=== PATIENT | female | born 1995 | race Caucasian/White ===

== ENCOUNTER 2016-11-15 21:48 | Emergency (ER) | payer OTHER ==
[2016-11-15 22:17] VITALS: RESP 16
[2016-11-15 22:27] VITALS: BP 135/93; PULSE 90; TEMP 98.8
--- NOTE | 2016-11-15 22:48 | ED ---
Lower Extremity Injury HPI - General Chief Complaint: Extremity Injury, Lower Stated Complaint: R foot pain Time Seen by Provider: 11/15/16 22:30 Source: patient, RN notes reviewed Mode of arrival: ambulatory Limitations: no limitations - History of Present Illness Initial Comments: 21-year-old female presents emergency Department chief complaint right foot injury. Patient states that she has pain just proximal over fourth and fifth digit. Patient states she does not know exactly which she did but states that it is very painful to walk on. Patient denies any previous injuries. States is swollen is no bruising or redness. Patient has no numbness or tingling. No back problems. - Related Data Previous Rx's Medication Instructions Recorded Ibuprofen [Motrin] 600 mg PO Q8HR PRN #30 tab 11/15/16 Allergies Allergy/AdvReac Type Severity Reaction Status Date / Time No Known Allergies Allergy Verified 11/15/16 22:17 Review of Systems ROS Statement: Those systems with pertinent positive or pertinent negative responses have been documented in the HPI. ROS Other: All systems not noted in ROS Statement are negative. Past Medical History Past Medical History: No Reported History History of Any Multi-Drug Resistant Organisms: None Reported Past Surgical History: No Surgical Hx Reported Past Psychological History: No Psychological Hx Reported Smoking Status: Never smoker Past Alcohol Use History: Occasional Past Drug Use History: Marijuana General Exam Limitations: no limitations General appearance: alert, in no apparent distress Respiratory exam: Present: normal lung sounds bilaterally. Absent: respiratory distress, wheezes, rales, rhonchi, stridor Cardiovascular Exam: Present: regular rate, normal rhythm, normal heart sounds. Absent: systolic murmur, diastolic murmur, rubs, gallop, clicks Extremities exam: Present: other (Right foot there is moderate tenderness just proximal of the fourth and fifth digit there is pain with fourth and slightly of the fifth digit there is mild swelling no ecchymosis Refill less than 2 seconds) Back exam: Present: full ROM. Absent: tenderness Neurological exam: Present: reflexes normal. Absent: motor sensory deficit Course Vital Signs 11/15/16 22:13 Temperature 98.8 F Pulse Rate 90 Respiratory 16 Rate Blood Pressure 135/93 O2 Sat by Pulse 99 Oximetry Medical Decision Making - Medical Decision Making 21-year-old female presented emergency department for right foot injury. There is no acute fractures. This most likely is of right foot sprain. Patient is advised ice and elevate and rest. Return parameters were discussed. Disposition Clinical Impression: Right foot sprain Disposition: HOME SELF-CARE Condition: Stable Instructions: Foot Sprain (ED) Additional Instructions: Please return to the Emergency Department if symptoms worsen or any other concerns. Prescriptions: Ibuprofen [Motrin] 600 mg PO Q8HR PRN #30 tab PRN Reason: Pain Referrals: None,Stated [Primary Care Provider] - 1-2 days Time of Disposition: 22:47
--- NOTE | 2016-11-15 23:08 | XR ---
EXAM: XR Right Foot Complete, 3 or More Views CLINICAL HISTORY: Reason: Pain TECHNIQUE: Frontal, lateral and oblique views of the right foot. COMPARISON: No relevant prior studies available. FINDINGS: Bones/joints: Unremarkable. No acute fracture. No dislocation. Soft tissues: Unremarkable. No radiopaque foreign body. IMPRESSION: Unremarkable right foot x-rays.
== END 2016-11-15 22:53 | disposition home or self-care (01) ==
LOC: EC 21:48
DX: S93.601A Unspecified sprain of right foot, initial encounter (principal); X58.XXXA Exposure to other specified factors, initial encounter
CPT/HCPCS: 99283

== ENCOUNTER 2017-08-03 16:58 | Inpatient (IN) | payer OTHER ==
[2017-08-03] MEDS ORDERED: CARBOPROST TROMETHAMINE 250 MCG/ML 1 ML AMP IM PRN (19:10)
[2017-08-03] MEDS ORDERED: OXYTOCIN 10 UNIT/ML 1 ML VIAL IM PRN (19:10)
[2017-08-03] MEDS ORDERED: LIDOCAINE 1% (PF) 10 MG/ML (30 ML SDV) SQ PRN (19:10)
[2017-08-03] MEDS ORDERED: AMPICILLIN 2,000 MG in SODIUM CHLORIDE 0.9% 100 ML IVPB STA (19:10)
[2017-08-03] MEDS ORDERED: METHYLERGONOVINE 0.2 MG/ML 1 ML AMP IM PRN (19:10)
[2017-08-03] MEDS ORDERED: TERBUTALINE 1 MG/ML VIAL SQ PRN (19:10)
[2017-08-03] MEDS: LACTATED RINGERS 1,000 ML IV SCH (19:53)
[2017-08-03 20:05] LABS: Basophils % (A) 0 %; Eosinophils # (A) 0.1 k/uL (0-0.7); Eosinophils % (A) 1 %; HCT 30.9 % (34.0-46.0); HGB 9.2 gm/dL (11.4-16.0); Hypochromasia Marked; Lymphocytes # (A) 1.5 k/uL (1.0-4.8); Lymphocytes % (A) 10 %; MCH 22.4 pg (25.0-35.0); MCHC 29.8 g/dL (31.0-37.0); MCV 75.1 fL (80.0-100.0); Microcytosis Slight; Monocytes # (A) 0.5 k/uL (0-1.0); Monocytes % (A) 4 %; Neutrophils # (A) 11.7 k/uL (1.3-7.7); Neutrophils % (A) 84 %; Platelet Count 238 k/uL (150-450); RBC 4.11 m/uL (3.80-5.40); RDW 15.3 % (11.5-15.5)
[2017-08-03 20:17] VITALS: BMI 40.3
--- NOTE | 2017-08-03 22:42 | P.HPOB ---
History of Present Illness H&P Date: 08/03/17 Chief Complaint: Intrauterine at 36 weeks: Active labor Regina is a 22-year-old at 36 weeks gestation who arrives complaining contractions every 2 minutes. The contractions have been going on for a couple of hours prior to arrival. She is seeing another physician at [facility]. She did not call or notify the physician but came to the closest hospital. She was dilated to 3-4 cm on initial presentation but after on hours weight she continued to contract and was dilated to 4 cm. She is admitted for labor. A decision was made that due to distance from the other hospital and active labor status in a multiparaous patient would not be safe to discharge her or try and attempt to transfer. She denies difficulties or problems with this and reports that she had stable and regular care. Past medical history is generally unremarkable. Past surgical history none. Family history none. Social history none. ALLERGIES none. On physical exam vital signs are stable and she is afebrile. Heart regular, lungs clear, extremities are without pain. Osteopathic exam is unremarkable. I did do a digital exam she was dilated to 7 cm and 80% effaced -3 station. Artificial rupture membranes was performed at this point clear fluid is noted. heart tones in the 140s and reactive. Assessment intrauterine at 36 weeks. Plan expect spontaneous vaginal delivery. Past Medical History Past Medical History: No Reported History History of Any Multi-Drug Resistant Organisms: None Reported Past Surgical History: No Surgical Hx Reported Past Anesthesia/Blood Transfusion Reactions: No Reported Reaction Past Psychological History: No Psychological Hx Reported Smoking Status: Never smoker Past Alcohol Use History: Occasional Past Drug Use History: Marijuana - Past Family History Father Family Medical History: No Reported History Medications and Allergies Home Medications Medication Instructions Recorded Confirmed Type Sertraline [Zoloft] 50 mg PO DAILY 08/03/17 08/03/17 History Allergies Allergy/AdvReac Type Severity Reaction Status Date / Time No Known Allergies Allergy Verified 08/03/17 17:11 Exam Osteopathic Statement: *. No significant issues noted on an osteopathic structural exam other than those noted in the History and Physical/Consult. - Vital Signs Vital signs: Vital Signs Temp Pulse Resp BP Pulse Ox 08/03/17 19:09 97.4 F L 82 16 128/70 98 08/03/17 17:14 97.4 F L 82 20 128/70 98 Intake and Output 08/03/17 08/03/17 08/03/17 06:59 14:59 22:59 Other: Weight 127.459 kg Patient Weight 08/04/17 06:59 Weight 127.459 kg Results Result Diagrams: 08/03/17 19:50 Abnormal Lab Results - Last 24 Hours (Table) 08/03/17 Range/Units 19:50 WBC 14.0 H (3.8-10.6) k/uL Hgb 9.2 L (11.4-16.0) gm/dL Hct 30.9 L (34.0-46.0) % MCV 75.1 L (80.0-100.0) fL MCH 22.4 L (25.0-35.0) pg MCHC 29.8 L (31.0-37.0) g/dL Neutrophils # 11.7 H (1.3-7.7) k/uL
[2017-08-03] MEDS ORDERED: MEASLES-MUMPS-RUBELLA VACC/PF 12,500 UNIT/0.5 ML VIAL SQ ONE (23:34)
[2017-08-03] MEDS ORDERED: LANOLIN CREAM 5 GM TUBE TOPICAL PRN (23:34)
[2017-08-03] MEDS ORDERED: HYDROCORTISONE 2.5% RECTAL CREAM 30 GM TUBE RECTAL PRN (23:34)
[2017-08-03] MEDS ORDERED: BENZOCAINE/MENTHOL SPRAY 1 GM/SPRAY AEROSOL TOPICAL PRN (23:34)
[2017-08-03] MEDS ORDERED: diphenhydrAMINE 50 MG/ML 1 ML VIAL IVP PRN ×2 (23:34)
[2017-08-03] MEDS ORDERED: WITCH HAZEL 1 EACH MED..PAD TOPICAL PRN (23:34)
[2017-08-03] MEDS ORDERED: diphenhydrAMINE 50 MG CAP PO PRN (23:34)
[2017-08-03] MEDS ORDERED: diphenhydrAMINE 25 MG CAP PO PRN (23:34)
[2017-08-03] MEDS ORDERED: ZOLPIDEM 5 MG TAB PO PRN (23:34)
[2017-08-03] MEDS ORDERED: ACETAMINOPHEN TAB 325 MG TAB PO PRN (23:34)
[2017-08-03] MEDS ORDERED: SIMETHICONE 80 MG CHEWABLE PO PRN (23:34)
--- NOTE | 2017-08-03 23:36 | P.PROBDLV ---
Vaginal Delivery Note - . Vaginal Delivery Note: Patient progressed complete and pushing with spontaneous vaginal delivery of a viable male over an intact perineum. Falling deliver the head a nuchal cord 1 was noted but baby was delivered through the nuchal cord. Once baby was fully delivered mouth nares were bulb suctioned and baby was placed on mother's abdomen where the umbilical cord was allowed to pulsate for approximately 30 seconds prior to clamping, cutting. Nursery personnel was present to assume care. Placenta was then delivered intact and Pitocin was added to the IV. scores were 9 and 9 at one and 5 minutes respectively. The weight is pending but both mother and baby appear stable.
[2017-08-04] MEDS: IBUPROFEN 600 MG TAB PO PRN ×3 (00:28→20:12)
[2017-08-04] MEDS: SENNOSIDES-DOCUSATE SODIUM 1 EACH TAB PO SCH ×2 (08:00→21:37)
--- NOTE | 2017-08-04 09:34 | P.PNOBGVD ---
Subjective - Subjective Principal diagnosis: day 1 Interval history: Overall negative doing very well day 1. She is involuting, voiding, and she is tolerating her diet. She voices no complaints. Patient reports: Reports appetite normal, Reports voiding normally, Reports pain well controlled, Reports ambulating normally : in NICU Objective - Latest Vital Signs Latest vital signs: Vital Signs Temp Pulse Resp BP Pulse Ox 08/04/17 04:00 97.1 F L 78 16 139/70 08/04/17 01:32 75 16 132/74 08/04/17 01:02 73 16 132/72 08/04/17 00:32 86 16 122/74 08/04/17 00:17 81 16 123/65 08/04/17 00:02 75 16 126/72 08/03/17 23:47 85 16 116/57 08/03/17 23:32 97.1 F L 81 16 125/66 08/03/17 19:09 97.4 F L 82 16 128/70 98 08/03/17 17:14 97.4 F L 82 20 128/70 98 Intake and Output 08/03/17 08/04/17 08/04/17 22:59 06:59 14:59 Other: # Voids 1 1 Weight 127.459 kg - Exam Lungs: bilateral: normal Chest: Normal S1, Normal S2 Extremities: Present: normal Abdomen: Present: normal appearance, soft Uterus: Present: normal, firm - Labs Labs: Abnormal Lab Results - Last 24 Hours (Table) 08/03/17 Range/Units 19:50 WBC 14.0 H (3.8-10.6) k/uL Hgb 9.2 L (11.4-16.0) gm/dL Hct 30.9 L (34.0-46.0) % MCV 75.1 L (80.0-100.0) fL MCH 22.4 L (25.0-35.0) pg MCHC 29.8 L (31.0-37.0) g/dL Neutrophils # 11.7 H (1.3-7.7) k/uL
[2017-08-04 21:33] LABS: Basophils % (A) 0 %; Eosinophils # (A) 0.2 k/uL (0-0.7); Eosinophils % (A) 2 %; HCT 29.3 % (34.0-46.0); HGB 8.8 gm/dL (11.4-16.0); Hypochromasia Marked; Lymphocytes # (A) 1.9 k/uL (1.0-4.8); Lymphocytes % (A) 16 %; MCH 22.6 pg (25.0-35.0); MCV 75.3 fL (80.0-100.0); Mean Platelet Volume 7.7; Microcytosis Slight; Monocytes # (A) 0.5 k/uL (0-1.0); Monocytes % (A) 4 %; Neutrophils % (A) 76 %; Platelet Count 223 k/uL (150-450); RBC 3.89 m/uL (3.80-5.40); RDW 14.8 % (11.5-15.5); WBC 11.8 k/uL (3.8-10.6)
[2017-08-04] MEDS: AMPICILLIN 1,000 MG in SODIUM CHLORIDE 0.9% 50 ML IVPB SCH ×2 (21:35→21:36)
[2017-08-04] MEDS: LACTATED RINGERS 1,000 ML IV SCH (21:36)
[2017-08-04 21:44] LABS: AST 19 U/L (14-36); Blood Urea Nitrogen 10 mg/dL (7-17); Uric Acid 3.7 mg/dL (3.7-7.4)
[2017-08-04 21:45] LABS: ALT 16 U/L (9-52); LDH 564 U/L (313-618); Magnesium 1.6 mg/dL (1.6-2.3)
[2017-08-04 21:52] LABS: INR 0.9 (<1.2); Prothrombin Time 9.3 sec (9.0-12.0)
[2017-08-04 22:02] LABS: Appearance,Urine Clear (Clear); Bilirubin,Urine Negative (Negative); Blood,Urine Moderate (Negative); Color,Urine Yellow; Glucose,Urine (UA) Negative (Negative); Ketones,Urine Negative (Negative); Leukocyte Esterase,Urine Moderate (Negative); Mucus,Urine Rare /hpf; Nitrite,Urine Negative (Negative); Protein,Urine Trace (Negative); RBC,Urine >182 /hpf (0-5); Specific Gravity,Urine 1.017 (1.001-1.035); Squamous Epithelial Cell,Urine 2 /hpf (0-4); WBC,Urine 6 /hpf (0-5)
[2017-08-04 22:09] LABS: Partial Thromboplastin Time 21.8 sec (22.0-30.0)
[2017-08-05] MEDS: AMPICILLIN 1,000 MG in SODIUM CHLORIDE 0.9% 50 ML IVPB SCH (01:13)
--- NOTE | 2017-08-05 08:36 | P.PNOBGVD ---
Subjective - Subjective Principal diagnosis: day 2 Interval history: Regina is seen and evaluated day 2. Overall she is doing well. She reports that now she's had some rest she feels significantly improved. That said she is had multiple blood pressures over the last 12 hours that a been elevated. They've all been the 140s over 70s to 80s, she has not had elevated blood pressures according to her throughout the . She reports no other history of prior elevated blood pressures. It is noted however that she has had several babies that are slightly early in is possible that her gestational hypertension wasn't going to develop until now and just had picked up with her other pregnancies and and/or with this . Concern over preeclampsia was addressed, preeclamptic labs were ordered and all returned normal she only had trace of protein. Liver function tests were normal daily renal function tests were normal she has on physical exam no scotomata, epigastric pain, or headaches. She has minimal peripheral edema and no central edema. Her heart is otherwise regular, lungs clear, extremities are without pain. Her abdomen is soft uterus is firm and lochia is reported to light. Due to elevated blood pressures we'll likely keep her for another day to see if they stabilize and come down to normal levels again. It is unclear what the etiology of her blood pressure elevations is, at this time it does not appear to be preeclampsia but certainly that is still a possibility. After discharge within 2-3 days she will need to follow up with Dr. Fraire for blood pressure check and monitoring. Once discharged lengthy description of signs and symptoms of preeclampsia including headache epigastric pain and visual changes was reviewed and she will report immediately to the emergency room should any of these develop. Objective - Latest Vital Signs Latest vital signs: Vital Signs Temp Pulse Resp BP 08/05/17 00:00 98.1 F 77 18 146/77 08/04/17 22:23 144/80 08/04/17 20:20 117/70 08/04/17 20:00 97.6 F 88 18 149/100 08/04/17 16:00 98.3 F 84 18 143/75 08/04/17 12:00 98.1 F 72 18 128/81 - Labs Labs: Abnormal Lab Results - Last 24 Hours (Table) 08/04/17 08/04/17 08/04/17 Range/Units 21:21 21:21 21:21 WBC 11.8 H (3.8-10.6) k/uL Hgb 8.8 L (11.4-16.0) gm/dL Hct 29.3 L (34.0-46.0) % MCV 75.3 L (80.0-100.0) fL MCH 22.6 L (25.0-35.0) pg MCHC 30.0 L (31.0-37.0) g/dL Neutrophils # 9.0 H (1.3-7.7) k/uL APTT 21.8 L (22.0-30.0) sec Fibrinogen 525 H (200-500) mg/dL Creatinine 0.50 L (0.52-1.04) mg/dL Urine Protein (Negative) Urine Blood (Negative) Ur Leukocyte Esterase (Negative) Urine RBC (0-5) /hpf Urine WBC (0-5) /hpf Urine Mucus (None) /hpf 08/04/17 Range/Units 21:40 WBC (3.8-10.6) k/uL Hgb (11.4-16.0) gm/dL Hct (34.0-46.0) % MCV (80.0-100.0) fL MCH (25.0-35.0) pg MCHC (31.0-37.0) g/dL Neutrophils # (1.3-7.7) k/uL APTT (22.0-30.0) sec Fibrinogen (200-500) mg/dL Creatinine (0.52-1.04) mg/dL Urine Protein Trace H (Negative) Urine Blood Moderate H (Negative) Ur Leukocyte Esterase Moderate H (Negative) Urine RBC >182 H (0-5) /hpf Urine WBC 6 H (0-5) /hpf Urine Mucus Rare H (None) /hpf
[2017-08-05 09:33] VITALS: BP 148/87; PULSE 73; RESP 14; TEMP 97.9
[2017-08-05] MEDS: SENNOSIDES-DOCUSATE SODIUM 1 EACH TAB PO SCH (09:33)
--- NOTE | 2017-08-28 17:23 | P.DS ---
Providers Date of admission: 08/03/17 19:01 Expected date of discharge: 08/05/17 Attending physician: Spencer Macias Primary care physician: Stated None Hospital Course: Regina was discharged home on day 2. Her blood pressures had stabilized and she was to follow-up with her primary ergonomics consultant for care. Questions were answered for her prior to her discharge. Her vital signs are stable and afebrile. There was no other changes from her initial visit with me earlier that morning. Heart regular, lungs clear, extremities without pain. Abdomen was soft uterus was firm below the umbilicus. Lochia was reported to be light. Assessment post day 2. Plan discharged home follow up with her ergonomics consultant Patient Condition at Discharge: Good Plan - Discharge Summary New Discharge Prescriptions: No Action Sertraline [Zoloft] 50 mg PO DAILY Discharge Medication List Sertraline [Zoloft] 50 mg PO DAILY 08/03/17 [History] Follow up Appointment(s)/Referral(s): Karlie Fraire MD [REFERRING] - 6 Weeks Activity/Diet/Wound Care/Special Instructions: No heavy lifting, limit stairs and driving, and pelvic rest. If any high temperatures, heavy bleeding, or severe pain call my office Discharge Disposition: HOME SELF-CARE
== END 2017-08-05 12:00 | disposition home or self-care (01) | DRG 775 ==
LOC: FBPOP 16:58 → 4FBP 19:01
PROVIDERS: ADMIT Obstetrics & Gynecology; ATTEND Obstetrics & Gynecology
PROC: 10E0XZZ Delivery of Products of Conception, External Approach (ICD-10-PCS; principal; 2017-08-03)
DX: O69.81X0 Labor and delivery complicated by cord around neck, without compression, not applicable or unspecified (principal); R03.0 Elevated blood-pressure reading, without diagnosis of hypertension; O75.89 Other specified complications of labor and delivery; Z37.0 Single live birth; Z3A.37 37 weeks gestation of pregnancy; Z79.899 Other long term (current) drug therapy
CPT/HCPCS: 59025; 81001; 82565; 83615; 83735; 84450; 84460; 84520; 84550; 85025; 85384; 85610; 85730; 88307; 99213

== ENCOUNTER 2017-09-29 11:05 | Emergency (ER) | payer OTHER ==
[2017-09-29 11:13] VITALS: TEMP 98.6
--- NOTE | 2017-09-29 11:49 | ED ---
General Adult HPI - General Chief complaint: Psychiatric Symptoms Stated complaint: Mental Health Time Seen by Provider: 09/29/17 11:44 Source: patient, RN notes reviewed Mode of arrival: ambulatory Limitations: no limitations - History of Present Illness Initial comments: Patient is a pleasant 22-year-old female presenting to the emergency department with depression and suicidal thoughts. Symptoms have been occurring just the past couple of weeks. Patient has many stressors. Patient does not have specific plan. No homicidal thoughts. No hallucinations. No alcohol or street drug use. No physical complaints. - Related Data Home Medications Medication Instructions Recorded Confirmed Sertraline [Zoloft] 50 mg PO DAILY 08/03/17 09/29/17 Allergies Allergy/AdvReac Type Severity Reaction Status Date / Time No Known Allergies Allergy Verified 09/29/17 11:13 Review of Systems ROS Statement: Those systems with pertinent positive or pertinent negative responses have been documented in the HPI. ROS Other: All systems not noted in ROS Statement are negative. Constitutional: Denies: fever Eyes: Denies: eye pain ENT: Denies: ear pain Respiratory: Denies: cough Cardiovascular: Denies: chest pain Endocrine: Denies: fatigue Gastrointestinal: Denies: abdominal pain Genitourinary: Denies: dysuria Musculoskeletal: Denies: back pain Skin: Denies: rash Psychiatric: Reports: depression, suicidal thoughts Past Medical History Past Medical History: No Reported History History of Any Multi-Drug Resistant Organisms: None Reported Past Surgical History: No Surgical Hx Reported Past Anesthesia/Blood Transfusion Reactions: No Reported Reaction Past Psychological History: Depression Smoking Status: Never smoker Past Alcohol Use History: Occasional Past Drug Use History: Marijuana - Past Family History Father Family Medical History: No Reported History General Exam Limitations: no limitations General appearance: alert, in no apparent distress Head exam: Present: atraumatic Eye exam: Present: normal appearance Neck exam: Present: normal inspection Respiratory exam: Present: normal lung sounds bilaterally Cardiovascular Exam: Present: regular rate, normal rhythm GI/Abdominal exam: Present: soft. Absent: tenderness Extremities exam: Present: normal inspection Neurological exam: Present: alert Psychiatric exam: Present: depressed Skin exam: Present: normal color Course Vital Signs 09/29/17 11:10 Temperature 98.6 F Pulse Rate 94 Respiratory 20 Rate Blood Pressure 141/96 O2 Sat by Pulse 98 Oximetry Medical Decision Making - Medical Decision Making Patient was seen by mental health services with plan for discharge. They did provide follow-up information. Patient does contract for safety. - Lab Data Lab Results 09/29/17 Range/Units 12:20 Urine Opiates Screen Not Detected (NotDetected) Ur Oxycodone Screen Not Detected (NotDetected) Urine Methadone Screen Not Detected (NotDetected) Ur Propoxyphene Screen Not Detected (NotDetected) Ur Barbiturates Screen Not Detected (NotDetected) U Tricyclic Antidepress Not Detected (NotDetected) Ur Phencyclidine Scrn Not Detected (NotDetected) Ur Amphetamines Screen Not Detected (NotDetected) U Methamphetamines Scrn Not Detected (NotDetected) U Benzodiazepines Scrn Not Detected (NotDetected) Urine Cocaine Screen Not Detected (NotDetected) U Marijuana (THC) Screen Not Detected (NotDetected) Disposition Clinical Impression: Depression Disposition: HOME SELF-CARE Condition: Stable Instructions: Depression (ED) Additional Instructions: Please follow-up with mental health services in the beginning of the week as directed. Please also follow-up with primary care physician in the beginning of the week. Return for worsening symptoms, thoughts of self-harm or other concerns. Referrals: Vciki Mejía MD [STAFF PHYSICIAN] - 1-2 days Time of Disposition: 13:42
[2017-09-29 12:44] LABS: Amphetamine Screen,Urine Not Detected (NotDetected); Barbiturate Screen,Urine Not Detected (NotDetected); Benzodiazepines Screen,Urine Not Detected (NotDetected); Cocaine Screen,Urine Not Detected (NotDetected); Methadone Screen, Urine Not Detected (NotDetected); Opiate Screen,Urine Not Detected (NotDetected); Oxycodone Screen, Urine Not Detected (NotDetected); Phencyclidine Screen,Urine Not Detected (NotDetected); Tricyclic Antidepressant,Urine Not Detected (NotDetected); Urn Cannabinoid Scrn Not Detected (NotDetected)
[2017-09-29] MEDS ORDERED: ACETAMINOPHEN TAB 500 MG TAB PO STA (13:40)
[2017-09-29 13:58] VITALS: BP 138/78; PULSE 90; RESP 16
== END 2017-09-29 13:57 | disposition home or self-care (01) ==
LOC: EC 11:05
DX: F32.9 Major depressive disorder, single episode, unspecified (principal); R45.851 Suicidal ideations; Z79.899 Other long term (current) drug therapy
CPT/HCPCS: 80306; 82075; 99285

== ENCOUNTER 2018-03-19 11:30 | Outpatient (CLI) | payer OTHER ==
[2018-03-19 12:04] VITALS: BP 140/77; PULSE 97; RESP 18; TEMP 98.2
[2018-03-19 12:39] LABS: Appearance,Urine Cloudy (Clear); Bacteria,Urine Occasional /hpf; Bilirubin,Urine Negative (Negative); Blood,Urine Negative (Negative); Color,Urine Yellow; Glucose,Urine (UA) Negative (Negative); Ketones,Urine Negative (Negative); Leukocyte Esterase,Urine Large (Negative); Mucus,Urine Few /hpf; Nitrite,Urine Negative (Negative); PH, Urine 6.5 (5.0-8.0); Protein,Urine 1+ (Negative); RBC,Urine 2 /hpf (0-5); Specific Gravity,Urine 1.027 (1.001-1.035); Squamous Epithelial Cell,Urine 6 /hpf (0-4); WBC,Urine 24 /hpf (0-5)
--- NOTE | 2018-03-30 11:57 | P.MSEPDOC ---
Presenting Problems - Arrival Data Date of Arrival on Unit: 03/19/18 Time of Arrival on Unit: 11:35 Mode of Transport: Ambulatory - Complaint OB-Reason for Admission/Chief Complaint: Pain Comment: back pain x 2 weeks, twin gestation. Medical History - Information : 5 Para: 4 Term: 4 : 0 Abortions: Spontaneous or Elective: 0 Number of Living Children: 4 - Gestational Age Gestational Age by OZZY (wks/days): 22 Weeks and 6 Days - History Complications: Multiple Comment: doppler FHR, twins. RLQ 165, Low center abdomen 155. + movement per pt. Abdomen soft, no contractions noted. Review of Systems - Review of Systems Constitutional: No problems Breast: No problems ENT: No problems Cardiovascular: No problems Respiratory: No problems Gastrointestinal: No problems Genitourinary: No problems Musculoskeletal: No problems Neurological: No problems Skin: No problems Vital Signs - Temperature Temperature: 98.2 F Temperature Source: Oral - Pulse Right Sitting Brachial Pulse Rate: 97 Pulse Assessment Method: Automatic Cuff - Respirations Respiratory Rate: 18 Oxygen Delivery Method: Room Air O2 Sat by Pulse Oximetry: 97 - Blood Pressure Right Arm Sitting Blood Pressure: 140/77 Blood Pressure Mean: 98 Blood Pressure Source: Automatic Cuff Medical Screen Scoring (Pre) - Cervical Exam Dilation: Exam Deferred Effacement: Exam Deferred - Uterine Contractions Frequency: N/A Duration: N/A Intensity: N/A - Maternal Vital Signs Maternal Temperature: N/A Maternal Blood Pressure: N/A Signs of Preeclampsia: N/A Maternal Respirations: N/A - Pain Assessment Pain Location and Character: Back Pain Scale Used: Numeric (1 - 10) Pain Intensity: 4 Pain Management Goal: 3 Pain Behavior: None Exhibited - Maternal Trauma Maternal Trauma: N/A - Total Score Total Score (Pre): 0 - Level of Risk Level of Risk: Low (0-5) Physician Notification (Pre) - Physician Notified Physician Notified Date: 03/19/18 Physician Notified Time: 11:55 Physician/Practitioner Notifed:: Dr Johnson Spoke With: Dr Johnson New Order Received: Yes - Notification Comment Comment: Send UA Medical Screen Scoring (Post) - Cervical Exam Dilation: Exam Deferred Effacement: Exam Deferred - Uterine Contractions Frequency: N/A Duration: N/A Intensity: N/A - Maternal Vital Signs Maternal Temperature: N/A Maternal Blood Pressure: N/A Signs of Preeclampsia: N/A Maternal Respirations: N/A - Maternal Trauma Maternal Trauma: N/A - Total Score Total Score (Post): 0 - Post Treatment Level of Risk Post Treatment Level of Risk: Low (0-5) Physician Notification (Post) - Physician Notified Physician Notified Date: 03/19/18 Physician Notified Time: 13:31 Physician/Practitioner Notified:: dr johnson Spoke With: dr johnson New Order Received: Yes (dc home, anbx called to [facility], increase po fluids) - Notification Comment Comment: urine also sent for culture. Disposition - Disposition OB Disposition: Discharge to home Discharge Date: 03/19/18 Discharge Time: 13:31 I agree with the RN Medical Screening Exam: Yes Risk & Benefit of care provided described in d/c instruction: Yes Diagnosis: INFECT OF PRT URINARY TRACT IN , SECOND TRIMESTER
== END 2018-03-19 13:33 | disposition home or self-care (01) ==
LOC: FBPOP 11:30
PROVIDERS: ATTEND Obstetrics & Gynecology
DX: O99.89 Other specified diseases and conditions complicating pregnancy, childbirth and the puerperium (principal); N39.0 Urinary tract infection, site not specified; Z3A.22 22 weeks gestation of pregnancy
CPT/HCPCS: 81001; 87086; 87077; 87186; G0463; 99213

== ENCOUNTER 2018-04-29 08:29 | Observation (INO) | payer OTHER ==
[2018-04-29] MEDS ORDERED: DIPH,PERTUS(ACELL)TETVAC-LF 0.5 ML VIAL IM ONE (09:02)
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
[2018-04-29 09:10] LABS: Glucose,Whole Blood 87 mg/dL (75-99)
[2018-04-29 09:16] LABS: Basophils % (A) 0 %; Eosinophils # (A) 0.1 k/uL (0-0.7); Eosinophils % (A) 1 %; HCT 29.1 % (34.0-46.0); HGB 9.1 gm/dL (11.4-16.0); Hypochromasia Moderate; Lymphocytes # (A) 1.2 k/uL (1.0-4.8); Lymphocytes % (A) 11 %; MCH 21.7 pg (25.0-35.0); MCHC 31.2 g/dL (31.0-37.0); MCV 69.6 fL (80.0-100.0); Mean Platelet Volume 7.8; Microcytosis Moderate; Monocytes # (A) 0.3 k/uL (0-1.0); Monocytes % (A) 3 %; Neutrophils # (A) 8.9 k/uL (1.3-7.7); Neutrophils % (A) 84 %; Platelet Count 223 k/uL (150-450); RBC 4.18 m/uL (3.80-5.40); RDW 15.1 % (11.5-15.5); WBC 10.7 k/uL (3.8-10.6)
[2018-04-29] MEDS ORDERED: ACETAMINOPHEN TAB 500 MG TAB PO STA (09:27)
[2018-04-29 09:28] LABS: ALT 16 U/L (9-52); AST 18 U/L (14-36); Albumin 3.4 g/dL (3.5-5.0); Alcohol <10 mg/dL; Alkaline Phosphatase 103 U/L (38-126); Amylase 35 U/L (30-110); Anion Gap 7 mmol/L; Blood Urea Nitrogen 9 mg/dL (7-17); Calcium 8.7 mg/dL (8.4-10.2); Carbon Dioxide 21 mmol/L (22-30); Chloride 106 mmol/L (98-107); Glucose 89 mg/dL (74-99); Lipase 66 U/L (23-300); Potassium 4.1 mmol/L (3.5-5.1); Sodium 134 mmol/L (137-145); Total Bilirubin 0.5 mg/dL (0.2-1.3); Total Protein 6.6 g/dL (6.3-8.2)
[2018-04-29 09:30] LABS: Partial Thromboplastin Time 21.1 sec (22.0-30.0)
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
[2018-04-29 09:38] LABS: Creatine Kinase 41 U/L (30-135)
[2018-04-29 09:50] LABS: Creatine Kinase MB 0.3 ng/mL (0.0-2.4); Troponin I <0.012 ng/mL (0.000-0.034)
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
[2018-04-29 11:20] VITALS: BP 134/78; PULSE 86; RESP 16; TEMP 97; BMI 38.7
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
[2018-04-29] MEDS: ACETAMINOPHEN TAB 500 MG TAB PO PRN ×2 (13:30→15:30)
[2018-04-29] MEDS ORDERED: LACTATED RINGERS 1,000 ML IV ONE (13:30)
[2018-04-30] MEDS: ACETAMINOPHEN TAB 500 MG TAB PO PRN ×2 (00:09→09:24)
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
== END 2018-04-30 10:00 | disposition home or self-care (01) ==
LOC: EC 08:29 → 4FBP 10:05
PROVIDERS: ADMIT Obstetrics & Gynecology; ATTEND Obstetrics & Gynecology
DX: O99.89 Other specified diseases and conditions complicating pregnancy, childbirth and the puerperium (principal); M25.552 Pain in left hip; M79.652 Pain in left thigh; O30.043 Twin pregnancy, dichorionic/diamniotic, third trimester; O99.343 Other mental disorders complicating pregnancy, third trimester; F32.9 Major depressive disorder, single episode, unspecified; O99.213 Obesity complicating pregnancy, third trimester; E66.9 Obesity, unspecified; Z68.38 Body mass index [BMI] 38.0-38.9, adult; Z79.899 Other long term (current) drug therapy; Y92.410 Unspecified street and highway as the place of occurrence of the external cause; V43.52XA Car driver injured in collision with other type car in traffic accident, initial encounter; Z3A.28 28 weeks gestation of pregnancy
CPT/HCPCS: 99285; 36415; 86900; 86901; 80053; 82150; 82550; 82553; 83605; 83690; 84484; 85025; 85610; 85730; 86850; 80320; 72170; 71045; 76815; G0378 ×2

== ENCOUNTER 2018-06-12 17:59 | Inpatient (IN) | payer OTHER ==
[2018-06-12] MEDS ORDERED: OXYTOCIN 10 UNIT/ML 1 ML VIAL ONE (18:22)
[2018-06-12] MEDS ORDERED: SODIUM CHLORIDE 0.9% IRRIG 1,000 ML BTL IRRIGATION ONE (18:22)
[2018-06-12] MEDS ORDERED: ONDANSETRON 4 MG/2 ML VIAL ONE (18:22)
[2018-06-12] MEDS ORDERED: ceFAZolin 1,000 MG VIAL ONE (18:22)
[2018-06-12] MEDS ORDERED: MORPHINE SULFATE (PF) 0.3 MG/0.3 ML SYR ONE (18:22)
[2018-06-12] MEDS ORDERED: CITRIC ACID-SODIUM CITRATE 15 ML CUP PO ONE (18:39)
[2018-06-12] MEDS ORDERED: LACTATED RINGERS 1,000 ML IV ONE (18:39)
[2018-06-12] MEDS ORDERED: LACTATED RINGERS 1,000 ML IV SCH (18:45)
[2018-06-12] MEDS ORDERED: diphenhydrAMINE 50 MG/ML 1 ML VIAL IVP PRN ×3 (18:49→19:34)
[2018-06-12] MEDS ORDERED: NALOXONE 0.4 MG/ML 1 ML VIAL IV PRN ×2 (18:49→19:34)
[2018-06-12] MEDS ORDERED: HYDROmorphone 1 MG/ML 1 ML SYRINGE IVP PRN (18:49)
[2018-06-12] MEDS ORDERED: NALBUPHINE 10 MG/ML (1 ML AMP) IV PRN (18:49)
--- NOTE | 2018-06-12 19:28 | P.HPOB ---
History of Present Illness H&P Date: 06/12/18 Chief Complaint: twin gestation 35 0/7 weeks, active labor This is a pleasant 23-year-old 5 para 4004 at 35-0/7 weeks with an estimated due date of July 17. Patient has a known twin dye dye gestation. Patient is noted to have been scheduled for primary secondary to malpresentation and tubal ligation. Patient presents tonight with complaints of contractions and pink discharge. On initial physical exam she was noted to be 9 cm 100% at -1 station baby A was noted to be in a transverse presentation with fingers palpated in the vagina. Membrane was palpated at that timeout. Next para 5 blood work she had a blood type of A+, rubella immune, hepatitis B surface antigen negative, GBS unknown. Patient was counseled on the need for primary secondary to malpresentation she states understanding and desires tubal ligation which was discussed previously with her in the office. Patient is a known patient of Dr. Foster and has been receiving routine care. Review of Systems Constitutional: Denies chills, Denies fatigue, Denies fever Ears, nose, mouth and throat: Denies headache Cardiovascular: Reports edema, Reports leg edema Respiratory: Denies cough, Denies dyspnea Gastrointestinal: Denies constipation, Denies diarrhea, Denies nausea, Denies vomiting Genitourinary: Reports Past Medical History Past Medical History: No Reported History Additional Past Medical History / Comment(s): gestational hypertension History of Any Multi-Drug Resistant Organisms: None Reported Past Surgical History: No Surgical Hx Reported Past Anesthesia/Blood Transfusion Reactions: No Reported Reaction Smoking Status: Never smoker - Past Family History Father Family Medical History: No Reported History Medications and Allergies Home Medications Medication Instructions Recorded Confirmed Type Sertraline [Zoloft] 50 mg PO DAILY 08/03/17 04/29/18 History Allergies Allergy/AdvReac Type Severity Reaction Status Date / Time No Known Allergies Allergy Verified 04/29/18 09:21 Exam Osteopathic Statement: *. No significant issues noted on an osteopathic structural exam other than those noted in the History and Physical/Consult. Intake and Output 06/12/18 06/12/18 06/12/18 06:59 14:59 22:59 Other: Weight 127.006 kg Targeted physical exam was performed in the triage room and general this is a well-nourished well-developed gravid female in no acute distress. Patient does show signs of active labor and is breathing through her contractions. She displays nonlabored breathing and heart is noted have regular rate and rhythm on cervical exam she was noted to be 9/100/-1 with a transverse/fingers palpated in the vagina membrane was palpated in addition. heart tones are noted reactive 2 Assessment and Plan (1) Twin Current Visit: Yes Status: Acute Code(s): O30.009 - TWIN , UNSP NUM PLCNTA & AMNIO SACS, UNSP TRIMESTER SNOMED Code(s): 49489829 (2) 35 weeks gestation of Current Visit: Yes Status: Acute Code(s): Z3A.35 - 35 WEEKS GESTATION OF SNOMED Code(s): 33307289 (3) Active labor Current Visit: Yes Status: Acute Code(s): DUT3259 - SNOMED Code(s): 99825801 Plan: Patient is admitted to labor and delivery for primary low transverse section secondary to twin gestation/malpresentation, and tubal ligation secondary to family status complete. Patient is counseled on the risks of C- section including but not limited to infection, bleeding, damage to bowel bladder or other pelvic structures. Patient states understanding and wishes to proceed with . Failure rates of tubal were discussed 2-3 per thousand were quoted as a failure risk she states understanding and still desires tubal ligation.
[2018-06-12] MEDS ORDERED: ONDANSETRON 4 MG/2 ML VIAL IVP PRN (19:34)
[2018-06-12] MEDS ORDERED: METOCLOPRAMIDE 5 MG/ML 2 ML VIAL IVP PRN (19:34)
[2018-06-12] MEDS ORDERED: ZOLPIDEM 5 MG TAB PO PRN (19:34)
[2018-06-12] MEDS ORDERED: ACETAMINOPHEN TAB 325 MG TAB PO PRN (19:34)
[2018-06-12] MEDS ORDERED: diphenhydrAMINE 50 MG CAP PO PRN (19:34)
[2018-06-12] MEDS ORDERED: HYDROcodone/APAP 5-325MG 1 EACH TAB PO PRN (19:34)
[2018-06-12] MEDS ORDERED: diphenhydrAMINE 25 MG CAP PO PRN (19:34)
--- NOTE | 2018-06-12 19:34 | P.OP ---
Date of Procedure: 06/12/18 Preoperative Diagnosis: Twin gestation at 35 0/7 weeks, active labor, malpresentation Postoperative Diagnosis: Same Procedure(s) Performed: Primary low transverse section with tubal ligation Anesthesia: spinal Surgeon: Sayda Medellin Direct Selling Counselor #1: Viridiana Gould Estimated Blood Loss (ml): 700 IV fluids (ml): 900 Urine output (ml): 100 Pathology: other (Placenta) Condition: stable Disposition: observation Indications for Procedure: Active labor with malpresentation of twin gestation Operative Findings: Normal uterus tubes and ovaries were appreciated A male was delivered at 1841, weight of 5 pounds 6.8 ounces, Apgars of 8 and 9 at one and 5 minutes respectively. Infant B, girl delivered at 1842 weight of 5 pounds 8.5 ounces Apgars of 7 and 8 at one and 5 minutes respectively. Description of Procedure: Patient was taken to the operating suite where spinal anesthesia was found to be adequate by the anesthesia department. She was then prepped and draped in the normal sterile fashion in dorsal supine position a Pfannenstiel skin incision was then made with the scalpel and carried through the underlying layers of fascia. The fascia was then incised in the midline and extended laterally. The anterior aspect of the fascial incision was then grasped caleb clamps, elevated and underlying rectus muscles dissected off sharply and bluntly. Attention was then turned to the inferior aspect of the incision which was grasped caleb clamps, elevated and underlying rectus muscle was dissected off sharply once again. The rectus muscles were in the midline the peritoneum was identified and entered. The bladder blade was then inserted into the abdominal cavity. Bladder flap was then created using sharp and blunt dissection. Hysterotomy incision was then made sharply with a scalpel. The amniotic sac of infant a was then ruptured and clear fluid was noted. was noted to be in transverse presentation this was converted to breech and was delivered in the usual breech fashion was then handed off to waiting social media executive. The cord prior to this had been doubly clamped and cut. Infant B was then delivered in a breech presentation and handed off to awaiting pediatricians after the cord was doubly clamped and cut. The placenta was then manually delivered and the uterus was cleared of all clots and debris. The uterus was then removed from the abdomen and closed in the usual fashion with 0 Vicryl from one lateral edge the the other with the second layer being an imbricating stitch. Hemostasis was appreciated. The right fallopian tube was then grasped with a stat crushed and tied off 2 with oh plain catgut. A segment of tube was then excised and hemostasis was appreciated. This was then repeated on the opposite side with good hemostasis visualized on both sides. The hysterotomy site was then inspected once again a small amount of bleeding was noted in the midline portion of the hysterotomy site therefore a figure-of- eight suture was used to obtain hemostasis. The uterus was then returned to the abdomen and hysterotomy site was inspected once again hemostasis was appreciated. The gutters were then cleared of all clots and debris. The fascia was then closed with 0 Vicryl in a running locked fashion from one lateral edge the midline and the other lateral edge the midline. The subcutaneous tissue was then irrigated copiously and closed with 3-0 Vicryl in a running fashion. This skin was then closed with 4-0 Vicryl in a subcuticular fashion. Steri-Strips and sterile dressings were applied as needed. All counts are correct 2 patient tolerated procedure well and was taken the recovery room awake and in stable condition
[2018-06-12] MEDS ORDERED: OXYTOCIN 20 UNITS/1000 ML NS 1,000 ML IV SCH (19:45)
[2018-06-12 19:48] VITALS: BMI 40.1
[2018-06-12] MEDS ORDERED: ACETAMINOPHEN IV (For NPO) 1,000 MG in EMPTY BAG 1 BAG IVPB ONE (20:00)
[2018-06-12] MEDS ORDERED: IBUPROFEN IV 800 MG in SODIUM CHLORIDE 0.9% 250 ML IV ONE (20:00)
[2018-06-12] MEDS: LACTATED RINGERS 1,000 ML IV SCH (20:04)
[2018-06-12] MEDS: SENNOSIDES-DOCUSATE SODIUM 1 EACH TAB PO SCH (20:10)
[2018-06-12 21:39] LABS: Anisocytosis Slight; Basophils % (A) 0 %; Eosinophils # (A) 0.1 k/uL (0-0.7); Eosinophils % (A) 1 %; HCT 25.6 % (34.0-46.0); HGB 7.7 gm/dL (11.4-16.0); Hypochromasia Marked; Lymphocytes # (A) 1.2 k/uL (1.0-4.8); Lymphocytes % (A) 7 %; MCH 20.6 pg (25.0-35.0); MCHC 30.1 g/dL (31.0-37.0); MCV 68.4 fL (80.0-100.0); Mean Platelet Volume 7.1; Microcytosis Marked; Monocytes # (A) 0.5 k/uL (0-1.0); Monocytes % (A) 3 %; Neutrophils # (A) 13.9 k/uL (1.3-7.7); Neutrophils % (A) 88 %; Platelet Count 197 k/uL (150-450); RBC 3.75 m/uL (3.80-5.40); RDW 16.3 % (11.5-15.5); WBC 15.7 k/uL (3.8-10.6)
[2018-06-12 21:48] LABS: ALT 14 U/L (9-52); AST 14 U/L (14-36); Blood Urea Nitrogen 9 mg/dL (7-17); LDH 499 U/L (313-618)
[2018-06-13] MEDS: LACTATED RINGERS 1,000 ML IV SCH ×2 (06:28→06:36)
[2018-06-13 07:30] LABS: Anisocytosis Slight; Basophils % (A) 0 %; Eosinophils # (A) 0.2 k/uL (0-0.7); Eosinophils % (A) 1 %; HCT 25.3 % (34.0-46.0); HGB 7.3 gm/dL (11.4-16.0); Hypochromasia Marked; Lymphocytes # (A) 1.3 k/uL (1.0-4.8); Lymphocytes % (A) 8 %; MCH 19.9 pg (25.0-35.0); MCHC 28.8 g/dL (31.0-37.0); MCV 69.3 fL (80.0-100.0); Microcytosis Marked; Monocytes # (A) 0.6 k/uL (0-1.0); Monocytes % (A) 3 %; Neutrophils # (A) 13.6 k/uL (1.3-7.7); Neutrophils % (A) 86 %; Platelet Count 208 k/uL (150-450); Poikilocytosis Slight; RBC 3.65 m/uL (3.80-5.40); RDW 16.2 % (11.5-15.5)
[2018-06-13] MEDS: KETOROLAC 30 MG/ML 1 ML VIAL IVP PRN ×2 (07:43→14:37)
[2018-06-13] MEDS: SERTRALINE 50 MG TAB PO SCH (07:44)
--- NOTE | 2018-06-13 10:41 | P.PNOBGPC ---
Subjective - Subjective Patient reports: Reports appetite normal, Reports voiding normally (Unable to void yet this morning.), Reports pain well controlled, Reports ambulating normally : doing well, in NICU Objective - Vital Signs Latest vital signs: Vital Signs Temp Pulse Resp BP BP Pulse Ox 06/13/18 07:53 99.0 F 83 16 123/72 97 06/13/18 07:00 16 06/13/18 05:00 16 98 06/13/18 04:00 98.7 F 73 15 143/77 98 06/13/18 03:00 15 99 06/13/18 01:00 15 99 06/13/18 00:00 98.4 F 72 15 137/82 97 06/12/18 23:00 17 98 06/12/18 21:23 64 15 135/85 06/12/18 20:53 57 L 15 148/80 06/12/18 20:23 59 L 15 152/88 99 06/12/18 20:08 65 15 143/82 99 06/12/18 19:53 70 15 137/79 98 06/12/18 19:38 70 15 135/75 99 06/12/18 19:23 97.5 F L 68 15 126/73 99 Intake and Output 06/12/18 06/13/18 06/13/18 22:59 06:59 14:59 Output Total 2300 800 200 Balance -2300 -800 -200 Output: Urine 100 800 200 Straight 200 Uretheral (Crowder) 600 Estimated Blood Loss 2200 Other: Weight 127.006 kg - Exam Extremities: Present: normal Abdomen: Present: normal appearance, soft. Absent: distention, tenderness Incision: Present: normal, dry, intact Uterus: Present: normal, firm (The uterine fundus is tonic and minimally tender below the umbilicus.) - Labs Labs: Abnormal Lab Results - Last 24 Hours (Table) 06/12/18 06/12/18 06/13/18 Range/Units 21:20 21:20 06:46 WBC 15.7 H 16.0 H (3.8-10.6) k/uL RBC 3.75 L 3.65 L (3.80-5.40) m/uL Hgb 7.7 L 7.3 L (11.4-16.0) gm/dL Hct 25.6 L 25.3 L (34.0-46.0) % MCV 68.4 L 69.3 L (80.0-100.0) fL MCH 20.6 L 19.9 L (25.0-35.0) pg MCHC 30.1 L 28.8 L (31.0-37.0) g/dL RDW 16.3 H 16.2 H (11.5-15.5) % Neutrophils # 13.9 H 13.6 H (1.3-7.7) k/uL Creatinine 0.51 L (0.52-1.04) mg/dL Assessment and Plan (1) S/P section Current Visit: Yes Status: Acute Code(s): Z98.891 - HISTORY OF UTERINE SCAR FROM PREVIOUS SURGERY SNOMED Code(s): 417194187 (2) Twin Current Visit: Yes Status: Acute Code(s): O30.009 - TWIN , UNSP NUM PLCNTA & AMNIO SACS, UNSP TRIMESTER SNOMED Code(s): 14452875 Plan: Have advanced the patient's diet to regular and have encouraged her to ablate in the halls routinely. I also encouraged her to attempt to void while in the shower. Continue routine postoperative care. I would anticipate her remaining in the hospital for a full 4 days postoperatively given the likelihood that the twin infants will remain in the nursery for at least that length of time.
--- NOTE | 2018-06-13 12:00 | P.PN ---
Progress Note - Text Progress Note Date: 06/13/18 Postoperative day 1 status post section under spinal anesthesia, and intrathecal morphine given for postoperative analgesia, patient doing well, there is no anesthesia related complications, Patient had no headache, vital signs stable , Assessment and plan= postop day 1 status post , doing well there is no anesthesia related complication.
[2018-06-13] MEDS: SENNOSIDES-DOCUSATE SODIUM 1 EACH TAB PO SCH ×2 (13:36→21:05)
[2018-06-13] MEDS: IBUPROFEN 600 MG TAB PO PRN (21:05)
[2018-06-14] MEDS: IBUPROFEN 600 MG TAB PO PRN ×2 (06:41→17:12)
--- NOTE | 2018-06-14 09:37 | P.PN ---
Subjective Progress Note Date: 06/14/18 Principal diagnosis: Postoperative day #2, doing well No complaints. Minimal lochia rubra, pain well controlled. Objective - Vital Signs Vital signs: Vital Signs Temp 98.2 F 06/13/18 23:19 Pulse 83 06/13/18 23:19 Resp 16 06/13/18 23:19 BP 147/87 06/13/18 23:19 Pulse Ox 97 06/13/18 23:19 Intake & Output 06/13/18 06/14/18 06/14/18 18:59 06:59 18:59 Intake Total 900 Output Total 400 950 Balance 500 -950 Intake: Intake, IV Titration 900 Amount Lactated Ringers 1,000 ml 900 @ 125 mls/hr IV .Q8H ABIGAIL Rx#:[id number] Output: Urine 400 950 Straight 200 Other: # Voids 1 1 - Constitutional General appearance: Present: average body habitus, cooperative - EENT Eyes: Present: PERRLA ENT: Present: hearing grossly normal - Neck Details: Breasts not engorged, equal and symmetric Neck: Present: normal ROM - Respiratory Respiratory: bilateral: CTA - Cardiovascular Rhythm: regular - Gastrointestinal General gastrointestinal: Present: normal bowel sounds - Genitourinary Genitourinary Comment(s): Incision clean and dry, intact, Steri-Strips applied. Fundus firm, midline, symmetric, 18 week size, nontender. - Integumentary Integumentary: Present: normal - Neurologic Neurologic: Present: CNII-XII intact - Musculoskeletal Musculoskeletal: Present: gait normal, strength equal bilaterally - Psychiatric Psychiatric: Present: A&O x's 3, appropriate affect, intact judgment & insight - Labs CBC & Chem 7: 06/13/18 06:46 06/12/18 21:20 Assessment and Plan Assessment: Postoperative day #2, doing well. Anemia noted, stable. Patient asymptomatic Plan: We'll begin ferrous sulfate, 325 mg twice a day. Continue postoperative care. Likely discharge home Saturday morning. Time with Patient: Less than 30
[2018-06-14] MEDS: SERTRALINE 50 MG TAB PO SCH (09:57)
[2018-06-14] MEDS: FERROUS SULFATE 325 MG TAB PO SCH (17:12)
[2018-06-14] MEDS: SENNOSIDES-DOCUSATE SODIUM 1 EACH TAB PO SCH (17:13)
[2018-06-15] MEDS: SENNOSIDES-DOCUSATE SODIUM 1 EACH TAB PO SCH ×2 (01:35→08:37)
[2018-06-15] MEDS: LACTATED RINGERS 1,000 ML IV SCH (01:35)
[2018-06-15] MEDS: IBUPROFEN 600 MG TAB PO PRN (05:51)
[2018-06-15] MEDS: SERTRALINE 50 MG TAB PO SCH (08:36)
[2018-06-15] MEDS: FERROUS SULFATE 325 MG TAB PO SCH ×2 (08:36→18:16)
--- NOTE | 2018-06-15 10:02 | P.PN ---
Subjective Progress Note Date: 06/15/18 Principal diagnosis: Postoperative day #3. Doing well. No complaints. Objective - Vital Signs Vital signs: Vital Signs Temp 97.2 F L 06/15/18 08:00 Pulse 84 06/15/18 08:00 Resp 18 06/15/18 08:00 BP 129/74 06/15/18 08:00 Pulse Ox 99 06/15/18 00:00 Intake & Output 06/14/18 06/15/18 06/15/18 18:59 06:59 18:59 Other: # Voids 2 2 - Constitutional General appearance: Present: average body habitus, cooperative, morbidly obese - EENT Eyes: Present: PERRLA ENT: Present: hearing grossly normal - Neck Neck: Present: normal ROM Thyroid: bilateral: normal size - Respiratory Respiratory: bilateral: CTA - Cardiovascular Rhythm: regular - Gastrointestinal Gastrointestinal Comment(s): Abdominal incision clean and dry, well approximated. No redness or drainage. General gastrointestinal: Present: normal bowel sounds - Integumentary Integumentary: Present: normal, normal turgor - Neurologic Neurologic: Present: CNII-XII intact - Musculoskeletal Musculoskeletal: Present: gait normal, strength equal bilaterally - Psychiatric Psychiatric: Present: A&O x's 3, appropriate affect, intact judgment & insight - Labs CBC & Chem 7: 06/13/18 06:46 06/12/18 21:20 Assessment and Plan Assessment: Postoperative day #3, status post section and tubal ligation. Doing well. Patient declining option for discharge today, wishing to be discharged tomorrow. Plan: Continue postoperative care. Likely discharge home tomorrow. Time with Patient: Less than 30
[2018-06-16] MEDS: IBUPROFEN 600 MG TAB PO PRN ×2 (00:17→10:15)
[2018-06-16] MEDS: SENNOSIDES-DOCUSATE SODIUM 1 EACH TAB PO SCH ×2 (00:18→08:30)
[2018-06-16 08:30] VITALS: BP 143/88; PULSE 87; RESP 20; TEMP 97.3
[2018-06-16] MEDS: SERTRALINE 50 MG TAB PO SCH (08:35)
[2018-06-16] MEDS: FERROUS SULFATE 325 MG TAB PO SCH (08:35)
--- NOTE | 2018-06-16 09:27 | P.DS ---
Providers Date of admission: 06/12/18 18:15 Expected date of discharge: 06/16/18 Attending physician: Ashok Foster Primary care physician: Stated None - Discharge Diagnosis(es) (1) S/P section Current Visit: Yes Status: Acute (2) Twin Current Visit: Yes Status: Acute Hospital Course: The patient is a 23-year-old 5 para 4004 admitted at 35-0/7 weeks by good dating parameters. She is admitted with a known twin gestation, dichorionic, diamniotic. She is admitted in active labor with her cervix dilated to 9 cm. She was scheduled for primary secondary to malpresentation and had also requested intraoperative tubal ligation having signed consent to that effect. She was taken the operating room where she was delivered of viable twins, twin A weighing 5 lbs. 7 oz. with Apgars of 8 at 1 minute and 9 at 5 minutes, twin B weighing 5 lbs. 9 oz. with Apgars of 7 at 1 minute and 8 at 5 minutes. Intraoperative tubal ligation was carried out. Her postoperative course was unremarkable with vital signs remaining stable and her temperature was afebrile throughout. As both twins were undergoing care in the special care nursery, she opted to remain for the entirety of her allowed stay and was deemed stable for discharge on postoperative day #4. She was discharged home to follow-up in the office in 2 weeks for an incision check and 6 weeks routinely. Discharge instructions included calling for any significantly increased bleeding or foul-smelling lochia, significantly increased fever abdominal pain, perineal complaints, breast complaints, incisional complaints, or anything else that concerned her. She is additionally instructed to do no heavy lifting over that same period of time and to abstain from anything in vagina for at least 6 weeks time to include intercourse. She was last instructed to do no driving until off of all pain medications or 2 weeks' time, whichever came first. She understood her instructions and agrees to follow up as noted above. Discharge medications included iron sulfate as she is and has been moderately anemic. She additionally was provided with a prescription for Tylenol No. 3, 1-2 by mouth every 6 hours when necessary pain, #20 dispensed with no refills. Maternal blood type is A+ and rubella status is immune. Discharge hemoglobin and hematocrit were 7.3 and 25.3 respectively. Procedures: #1. Primary low-transverse section #2. Intraoperative bilateral tubal ligation Patient Condition at Discharge: Good Plan - Discharge Summary New Discharge Prescriptions: No Action Sertraline [Zoloft] 50 mg PO DAILY Discharge Medication List Sertraline [Zoloft] 50 mg PO DAILY 08/03/17 [History] Follow up Appointment(s)/Referral(s): Ashok Foster MD [STAFF PHYSICIAN] - 2 Weeks Discharge Disposition: HOME SELF-CARE
--- NOTE | 2018-07-15 11:34 | CDI ---
Documentation Clarification Form Date: 07-15-18 From: NANY Arriaga Phone: If you have question, contact Samantha Chan at [phone] M-F 8:30 am to 6pm Admit Date: 06/12/2018 6:15:00 PM Patient Name: Regina Mendosa Visit Number: [id number] Discharge Date: 06/16/2018 11:31:00 AM ATTENTION: The Clinical Documentation Specialists (CDI) and [facility] Coding Staff appreciate your assistance in clarifying documentation. Please respond to the clarification below the line at the bottom and electronically sign. The CDI & [facility] Coding staff will review the response and follow-up if needed. Please note: Queries are made part of the Legal Health Record. If you have any questions, please contact the author of this message via ITS. Dr. Ashok Foster Ms Mendosa was admitted for section. The following has been documented in your progress notes 06/14 anemia noted, stable. Hemoglobin is noted as follows: 06/12 7.7 and 06/13 7.3 Definition of Present on Admission (POA): A diagnosis present at the time the order for admission to inpatient status was written. For each diagnosis, documentation must be clear to determine if the condition was present at the time of the patients inpatient admission or developed during the hospital stay. Please clarify if the anemia was POA: ____Y = Yes, the condition was present at the time of the order for inpatient admission. ____N = No, the condition was not present at the time of the order for inpatient admission. ____W = Clinically undetermined if the condition was present at the time of the order for inpatient admission. __Not present at time of admission, postoperative only. MTDD
== END 2018-06-16 11:31 | disposition home or self-care (01) | DRG 783 ==
LOC: FBPOP 17:59 → 4FBP 18:15
PROVIDERS: ADMIT Obstetrics & Gynecology Obstetrics; ATTEND Obstetrics & Gynecology
PROC: 0UB70ZZ Excision of Bilateral Fallopian Tubes, Open Approach (ICD-10-PCS; 2018-06-12)
PROC: 10D00Z1 Extraction of Products of Conception, Low, Open Approach (ICD-10-PCS; principal; 2018-06-12 18:30)
DX: O32.2XX1 Maternal care for transverse and oblique lie, fetus 1 (principal); O60.14X0 Preterm labor third trimester with preterm delivery third trimester, not applicable or unspecified; O30.043 Twin pregnancy, dichorionic/diamniotic, third trimester; O99.02 Anemia complicating childbirth; D64.9 Anemia, unspecified; Z3A.35 35 weeks gestation of pregnancy; Z37.2 Twins, both liveborn; Z79.899 Other long term (current) drug therapy; Z30.2 Encounter for sterilization
CPT/HCPCS: 82565; 83615; 84450; 84460; 84520; 84550; 85025; 86850; 86900; 86901; 88302; 88307; 99213

== ENCOUNTER 2020-11-04 15:54 | Emergency (ER) | payer OTHER ==
--- NOTE | 2020-11-04 19:25 | US ---
EXAMINATION TYPE: US venous doppler duplex LE LT DATE OF EXAM: 11/04/2020 6:31 PM COMPARISON: NONE CLINICAL HISTORY: L leg swellingeleg w. SIDE PERFORMED: Left TECHNIQUE: The lower extremity deep venous system is examined utilizing real time linear array sonog ousmane with graded compression, doppler sonography and color-flow sonography. VESSELS IMAGED: Common Femoral Vein Deep Femoral Vein Greater Saphenous Vein * Femoral Vein Popliteal Vein Small Saphenous Vein * Proximal Calf Veins (* superficial vessels) Left Leg: Negative for DVT IMPRESSION: No evidence of left lower extremity DVT.
--- NOTE | 2020-11-04 19:30 | ED ---
Extremity Problem HPI - General Chief complaint: Extremity Problem,Nontraumatic Stated complaint: L Ankle Pain Time Seen by Provider: 11/04/20 17:17 Source: patient Mode of arrival: ambulatory Limitations: no limitations - History of Present Illness Initial comments: 25-year-old female presents to emergency Department with a chief complaint of left ankle swelling. Patient reports this began since yesterday and she denies any injuries to the leg. She denies any pain around the ankle or foot. States the left lower leg also appears to be gradually become more edematous. She denies any history of DVT or PE. Denies any chest pain, shortness of breath, exogenous estrogen use or recent hospitalizations. She denies any erythematous changes or ecchymosis. States she is able to ambulate without difficulty. - Related Data Home Medications Medication Instructions Recorded Confirmed Sertraline [Zoloft] 50 mg PO DAILY 08/03/17 06/12/18 Allergies Allergy/AdvReac Type Severity Reaction Status Date / Time No Known Allergies Allergy Verified 06/12/18 19:37 Review of Systems ROS Statement: Those systems with pertinent positive or pertinent negative responses have been documented in the HPI. ROS Other: All systems not noted in ROS Statement are negative. Past Medical History Past Medical History: No Reported History Additional Past Medical History / Comment(s): gestational hypertension History of Any Multi-Drug Resistant Organisms: None Reported Past Surgical History: Section Past Anesthesia/Blood Transfusion Reactions: No Reported Reaction Past Psychological History: Depression Past Alcohol Use History: None Reported Past Drug Use History: None Reported - Past Family History Father Family Medical History: No Reported History General Exam Limitations: no limitations General appearance: alert, in no apparent distress Head exam: Present: atraumatic, normocephalic, normal inspection Eye exam: Present: normal appearance, PERRL, EOMI Pupils: Present: normal accommodation ENT exam: Present: normal exam, normal oropharynx, mucous membranes moist, TM's normal bilaterally, normal external ear exam Neck exam: Present: normal inspection, full ROM. Absent: tenderness Respiratory exam: Present: normal lung sounds bilaterally. Absent: respiratory distress, wheezes, rales, rhonchi, stridor, chest wall tenderness, accessory muscle use Cardiovascular Exam: Present: regular rate, normal rhythm, normal heart sounds. Absent: systolic murmur Extremities exam: Present: full ROM, normal capillary refill, pedal edema (+1 nonpitting edema left lower extremity), calf tenderness (Very mild left calf tenderness), other (Palpable DP and PT bilaterally). Absent: normal inspection (Slightly edematous left lower extremity), tenderness, joint swelling Back exam: Present: normal inspection, full ROM. Absent: tenderness, CVA tenderness (R), CVA tenderness (L) Neurological exam: Present: alert, oriented X3 Psychiatric exam: Present: normal affect, normal mood Skin exam: Present: warm, dry, intact, normal color Course Vital Signs 11/04/20 16:54 Temperature 98.2 F Pulse Rate 87 Respiratory 18 Rate Blood Pressure 120/78 O2 Sat by Pulse 98 Oximetry Medical Decision Making - Medical Decision Making 25-year-old male presents to the emergency department with a chief complaint of left ankle swelling. On physical examination, patient is neurovascularly intact. She has unilateral leg swelling without any acute injuries. No chest pain or shortness of breath. Ultrasound was performed to rule out DVT. Ultrasound Doppler was unremarkable. Advised the patient to keep her legs elevated and follow up with her primary care physician. Return parameters were discussed with patient was up standing agreeable. Disposition Clinical Impression: Left leg swelling Disposition: HOME SELF-CARE Condition: Stable Instructions (If sedation given, give patient instructions): Leg Edema (ED) Additional Instructions: Keep her legs elevated, follow with her primary care physician. Return to emergency department if symptoms worsen. Is patient prescribed a controlled substance at d/c from ED?: No Referrals: Espinoza Martinez MD [Primary Care Provider] - 1-2 days Time of Disposition: 19:30
[2020-11-04 19:33] VITALS: BP 124/72; PULSE 81; RESP 20; TEMP 98
== END 2020-11-04 19:37 | disposition home or self-care (01) ==
LOC: EC 15:54
DX: M25.462 Effusion, left knee (principal)
CPT/HCPCS: 99283

== ENCOUNTER → 2021-12-21 | Outpatient (CLI) | payer OTHER ==
--- NOTE | 2021-12-21 13:37 | US ---
EXAMINATION TYPE: US abdomen limited DATE OF EXAM: 12/21/2021 COMPARISON: NONE CLINICAL HISTORY: R10.32 LEFT LOWER QUADRANT PAIN. Palpable area left lower quadrant x 1 week Left pelvis at palpable: 1.0 x 0.9 x 1.2cm hypoechoic area seen IMPRESSION: The site of clinical concern there is a nonspecific hypoechoic mass. Short-term follow-u p is recommended versus tissue diagnosis.
== END | disposition home or self-care (01) ==
LOC: RADUSWWP 13:00
PROVIDERS: ATTEND Family Medicine
DX: R10.32 Left lower quadrant pain (principal)
CPT/HCPCS: 76857

== ENCOUNTER → 2023-05-24 | Outpatient (CLI) | payer OTHER ==
[~2023-05-24] MED LIST: IRON SUCROSE 200 MG in SODIUM CHLORIDE 0.9% 100 ML IVPB NR; IRON SUCROSE 200 MG in SODIUM CHLORIDE 0.9% 100 ML IVPB ONE; SODIUM CHLORIDE 0.9% 500 ML 500 ML in EMPTY BAG 1 BAG IV PRN
[2023-05-24 08:56] VITALS: BP 122/82; PULSE 84; RESP 16; TEMP 98
== END ==
LOC: PROCWHC3 08:25
PROVIDERS: ATTEND Physician Assistant Medical
DX: R79.0 Abnormal level of blood mineral (principal)
CPT/HCPCS: 96365; J1756

== ENCOUNTER 2023-05-27 18:25 | Emergency (ER) | payer OTHER ==
[2023-05-27 19:27] VITALS: BP 135/81; TEMP 99.8
--- NOTE | 2023-05-27 19:46 | XR ---
EXAMINATION TYPE: XR chest 2V DATE OF EXAM: 05/27/2023 7:33 PM CLINICAL INDICATION:Female, 28 years old with history of cough; [facility] COMPARISON: 04/29/2018 sex of wen TECHNIQUE: XR chest 2V. Frontal PA and lateral views of the chest. FINDINGS: Lines/Tubes: EKG leads and other extraneous densities over the chest. No indwelling lines are seen. Heart/mediastinum: Cardiomediastinal silhouette is well defined. Heart size is upper limits of oma l in size, likely exaggerated by the portable technique. Mediastinum appears normal. Pulmonary vascularity: Not increased, Lungs/Pleura: There is no evidence of pleural effusion, focal consolidation, or pneumothorax. Musculoskeletal: No acute osseous abnormality demonstrated in the limits of the exam. Other findings: None. IMPRESSION: No acute cardiopulmonary abnormality.
--- NOTE | 2023-05-27 21:00 | ED ---
URI HPI - General Chief Complaint: Upper Respiratory Infection Stated Complaint: headache Time Seen by Provider: 05/27/23 20:48 Source: patient Limitations: no limitations - History of Present Illness Initial Comments: 28-year-old female presenting with chief complaint of headache. Patient states that since yesterday she has had headache, chills, body aches, sore throat, nonproductive cough. She denies fevers or chills. No chest pain or difficulty breathing. No nausea or vomiting or diarrhea. - Related Data Home Medications Medication Instructions Recorded Confirmed Sertraline [Zoloft] 50 mg PO DAILY 08/03/17 05/24/23 Semaglutide [Wegovy] 1.7 mg SQ WEEKLY 05/24/23 05/24/23 Allergies Allergy/AdvReac Type Severity Reaction Status Date / Time No Known Allergies Allergy Verified 05/24/23 08:34 Review of Systems ROS Statement: Those systems with pertinent positive or pertinent negative responses have been documented in the HPI. ROS Other: All systems not noted in ROS Statement are negative. Past Medical History Past Medical History: No Reported History Additional Past Medical History / Comment(s): gestational hypertension History of Any Multi-Drug Resistant Organisms: None Reported Past Surgical History: Section Past Anesthesia/Blood Transfusion Reactions: No Reported Reaction Past Psychological History: Anxiety, Depression Smoking Status: Vaper - Past Family History Father Family Medical History: No Reported History General Exam Limitations: no limitations General appearance: alert, in no apparent distress Head exam: Present: atraumatic, normocephalic, normal inspection Eye exam: Present: normal appearance, EOMI ENT exam: Present: normal exam, normal oropharynx, mucous membranes moist Neck exam: Present: normal inspection, full ROM Respiratory exam: Present: normal lung sounds bilaterally. Absent: respiratory distress, wheezes, rales, rhonchi, stridor Cardiovascular Exam: Present: regular rate, normal rhythm, normal heart sounds. Absent: systolic murmur, diastolic murmur, rubs, gallop, clicks Neurological exam: Present: alert, oriented X3 Psychiatric exam: Present: normal affect, normal mood Skin exam: Present: warm, dry. Absent: rash Course Vital Signs 05/27/23 05/27/23 19:04 21:09 Temperature 99.8 F H Pulse Rate 117 H 103 H Respiratory 20 16 Rate Blood Pressure 135/81 O2 Sat by Pulse 98 98 Oximetry Medical Decision Making - Medical Decision Making Was pt. sent in by a medical professional or institution (VERÓNICA Cary, SATELLITE INSTALLATION TECHNICIAN, urgent care, hospital, or fpc...) When possible be specific @ -No Did you speak to anyone other than the patient for history (EMS, parent, family, police, friend...)? What history was obtained from this source @ -No Did you review nursing and triage notes (agree or disagree)? Why? @ -I reviewed and agree with nursing and triage notes Were old charts reviewed (outside hosp., previous admission, EMS record, old EKG, old radiological studies, urgent care reports/EKG's, fpc records)? Report findings @ -No old charts were reviewed Differential Diagnosis (chest pain, altered mental status, abdominal pain women, abdominal pain men, vaginal bleeding, weakness, fever, dyspnea, syncope, headache, dizziness, GI bleed, back pain, seizure, CVA, palpatations, mental health, musculoskeletal)? @ -Differential includes influenza, RSV, Covid, pneumonia, this is not an all inclusive last EKG interpreted by me (3pts min.). @ -As above X-rays interpreted by me (1pt min.). @ Chest x-ray shows no acute cardiopulmonary process CT interpreted by me (1pt min.). @ -None done U/S interpreted by me (1pt. min.). @ -None done What testing was considered but not performed or refused? (CT, X-rays, U/S, labs)? Why? @ -None What meds were considered but not given or refused? Why? @ -None Did you discuss the management of the patient with other professionals (professionals i.e. VERÓNICA Cary, SATELLITE INSTALLATION TECHNICIAN, lab, RT, psych nurse, neonatal social worker, well drill operator cable tool, teacher, environmental technical officer, disability case manager)? Give summary @ -No Was smoking cessation discussed for >3mins.? @ -No Was critical care preformed (if so, how long)? @ -No Were there social determinants of health that impacted care today? How? (Homelessness, low income, unemployed, alcoholism, drug addiction, transportation, low edu. Level, literacy, decrease access to med. care, half-way, rehab)? @ -No Was there de-escalation of care discussed even if they declined (Discuss DNR or withdrawal of care, Hospice)? DNR status @ -No What co-morbidities impacted this encounter? (DM, HTN, Smoking, COPD, CAD, Cancer, CVA, ARF, Chemo, Hep., AIDS, mental health diagnosis, sleep apnea, morbid obesity)? @ -None Was patient admitted / discharged? Hospital course, mention meds given and route, prescriptions, significant lab abnormalities, going to OR and other pertinent info. @ -28-year-old female presenting with chief complaint of headache, body aches, chills, sore throat, nonproductive cough. History and physical exam are conducted. Patient is positive for influenza A. She is educated on today's findings and supportive management at home. Follow-up with PCP. Report back to ER with any new or worsening symptoms. Discussed return parameters and answered all questions. Patient conveyed verbal understanding and agreed to the plan. I discussed this case in detail with my attending Dr. Main Undiagnosed new problem with uncertain prognosis? @ -No Drug Therapy requiring intensive monitoring for toxicity (Heparin, Nitro, Insulin, Cardizem)? @ -No Were any procedures done? @ -No Diagnosis/symptom? @ -Influenza A Acute, or Chronic, or Acute on Chronic? @ -acute Uncomplicated (without systemic symptoms) or Complicated (systemic symptoms)? @ -Uncomplicated Side effects of treatment? @ -No Exacerbation, Progression, or Severe Exacerbation? @ -No Poses a threat to life or bodily function? How? (Chest pain, [place], [place], pneumonia, PE, COPD, DKA, ARF, appy, cholecystitis, CVA, Diverticulitis, Homicidal, Chiqui cidal, threat to staff... and all critical care pts) @ -No - Lab Data Lab Results 05/27/23 05/27/23 Range/Units 19:38 19:38 Influenza Type A (PCR) Detected A (Not Detectd) Influenza Type B (PCR) Not Detected (Not Detectd) RSV (PCR) Not Detected (Not Detectd) SARS-CoV-2 (PCR) Not Detected (Not Detectd) Group A Strep (PCR) NOT DETECTED (Not Detectd) Disposition Clinical Impression: Influenza A Disposition: HOME SELF-CARE Condition: Good Instructions (If sedation given, give patient instructions): Influenza (ED) Additional Instructions: Follow-up with PCP. Report back to ER with any new or worsening symptoms. Alternate Motrin and Tylenol as needed for fever and pain control. Rest and drink plenty of fluids. Is patient prescribed a controlled substance at d/c from ED?: No Referrals: Espinoza Martinez MD [Primary Care Provider] - 1-2 days Time of Disposition: 21:00
[2023-05-27 21:29] VITALS: PULSE 103; RESP 16
== END 2023-05-27 21:10 | disposition home or self-care (01) ==
LOC: EC 18:25
DX: J10.1 Influenza due to other identified influenza virus with other respiratory manifestations (principal); F41.9 Anxiety disorder, unspecified; F32.A Depression, unspecified; F17.290 Nicotine dependence, other tobacco product, uncomplicated; Z79.899 Other long term (current) drug therapy; Z20.822 Contact with and (suspected) exposure to COVID-19
CPT/HCPCS: 71046; 87636; 87651; 99284